=== PATIENT | female | born 1950 | race Caucasian/White ===

== ENCOUNTER 2019-07-03 11:28 | Emergency (ER) | payer OTHER ==
[2019-07-03 11:35] VITALS: BMI 22.4
--- NOTE | 2019-07-03 12:08 | PDOC ---
History of Present Illness - General Chief Complaint: Pain, Acute Stated Complaint: LOW BACK PAIN Time Seen by Provider: 07/03/19 11:52 - History of Present Illness Initial Comments: 07/03/19 13:30 69 years old past medical history significant for high cholesterol diabetes chronic low back pain with radiation down to her left leg presents ED with severely worsening low back pain is worse with movement and now associated with abdominal discomfort. Pain is moderate to severe 9 out of 10 worse with movement no alleviating factors Past History - Past Medical History Allergies/Adverse Reactions: Allergies Allergy/AdvReac Type Severity Reaction Status Date / Time codeine Allergy Verified 07/03/19 11:30 ofloxacin [From Floxin] Allergy Verified 07/03/19 11:30 shrimp Allergy Verified 07/03/19 12:47 tramadol Allergy Verified 07/03/19 11:30 Home Medications: Ambulatory Orders Cyclobenzaprine HCl [Flexeril -] 10 mg PO TID #21 tablet 07/03/19 Glipizide [Glucotrol Xl] 5 mg PO DAILY 07/03/19 Methylprednisolone [Medrol Dose [place]] 4 mg PO ASDIR #21 tablet 07/03/19 Simvastatin [Zocor -] 5 mg PO HS 07/03/19 COPD: No Diabetes: Yes HTN: Yes Hypercholesterolemia: Yes - Psycho Social/Smoking Cessation Hx Smoking History: Never smoked Hx Alcohol Use: No Drug/Substance Use Hx: No Review of Systems - Review of Systems Comments:: 07/03/19 13:31 ROS: A complete review of 10 out of 10 review of systems is taken and is negative apart from what is previously mentioned below and in the HPI. *Physical Exam - Vital Signs Last Vital Signs Temp Pulse Resp BP Pulse Ox 98.3 F 88 17 137/71 99 07/03/19 11:29 07/03/19 11:29 07/03/19 11:29 07/03/19 11:29 07/03/19 11:29 - Physical Exam Comments: 07/03/19 13:43 Vitals: Triage Vital signs reviewed General Appearance: no acute distress, well nourished well developed, Head: Atraumatic, Cardiac: Regular rate and rhythym, no murmurs, no rubs, no gallops, Lungs: Clear to auscultation bilateral, good air movement bilaterally, Abdomen: Soft, non distended, normal bowel sounds, lower abdominal discomfort diffuse Extremities: Full range of motion to all extremities, no cyanosis, clubbing, or edema Musculoskeletal: Moderate to severe paraspinal lower back discomfort Skin: Warm and dry, no rashes or lesions, no rash, no petechiae Neuro: AOX3; Cranial Nerves 2-12 grossly intact, Strength intact to all extremities, Sensation intact to all extremities,gait normal Psych: normal mood, normal affect ED Treatment Course - LABORATORY CBC & Chemistry Diagram: 07/03/19 12:18 07/03/19 12:18 Medical Decision Making - Medical Decision Making 07/03/19 15:40 Moderate anterior wedging and chronic compression fracture with retropulsion but no significant compromise of the spinal canal. Central compression of the L3 vertebral vertebral body findings discussed with patient. We'll provide patient with Medrol Dosepak and neurosurgery follow-up Findings, the need for follow-up and strict return instructions discussed with patient. *DC/Admit/Observation/Transfer Diagnosis at time of Disposition: Vertebral compression fracture Qualifiers: Encounter type: initial encounter Fracture of vertebra location: lumbar Lumbar vertebra fracture level: L3 Qualified Code(s): S32.030A - Wedge compression fracture of third lumbar vertebra, initial encounter for closed fracture - Discharge Dispostion Disposition: HOME Condition at time of disposition: Fair Decision to Admit order: No - Prescriptions Prescriptions: Cyclobenzaprine HCl [Flexeril -] 10 mg PO TID #21 tablet Methylprednisolone [Medrol Dose [place]] 4 mg PO ASDIR #21 tablet - Referrals Referrals: Lakeshia Jung MD [Primary Care Provider] - Eran Buchanan MD, [facility] [Staff Physician] - - Patient Instructions Printed Discharge Instructions: Vertebral Compression Fracture Additional Instructions: Take Medrol Dosepak and Flexeril as prescribed. Follow-up with Dr. Buchanan neurosurgery this week. Return to the emergency department for any weakness numbness or for any concerns. - Post Discharge Activity Discharge - Discharge Information Problems reviewed: Yes Clinical Impression/Diagnosis: Vertebral compression fracture Qualifiers: Encounter type: initial encounter Fracture of vertebra location: lumbar Lumbar vertebra fracture level: L3 Qualified Code(s): S32.030A - Wedge compression fracture of third lumbar vertebra, initial encounter for closed fracture Condition: Fair Disposition: HOME - Admission No - Additional Discharge Information Prescriptions: Cyclobenzaprine HCl [Flexeril -] 10 mg PO TID #21 tablet Methylprednisolone [Medrol Dose [place]] 4 mg PO ASDIR #21 tablet - Follow up/Referral Referrals: Eran Buchanan MD, [facility] [Staff Physician] - Lakeshia Jung MD [Primary Care Provider] - - Patient Discharge Instructions Patient Printed Discharge Instructions: Vertebral Compression Fracture Additional Instructions: Take Medrol Dosepak and Flexeril as prescribed. Follow-up with Dr. Buchanan neurosurgery this week. Return to the emergency department for any weakness numbness or for any concerns. - Post Discharge Activity
[2019-07-03] MEDS ORDERED: SODIUM CHLORIDE 0.9% 1000 ML INFUS.BAG IV ONE (12:17)
[2019-07-03] MEDS ORDERED: diazePAM 2 MG TABLET PO ONE (12:17)
[2019-07-03] MEDS ORDERED: ACETAMINOPHEN 1000 MG/100 ML VIAL (NON FORMULARY) IVPB ONE (12:17)
[2019-07-03] MEDS ORDERED: diazePAM 2 MG TABLET ONE (12:26)
[2019-07-03] MEDS ORDERED: ACETAMINOPHEN INJECTION 100 ML IVPB ONE (12:26)
[2019-07-03 12:54] LABS: BASO % 0.4 % (0-2.0); EOS % 1.3 % (0-4.5); HEMOGLOBIN 11.1 GM/dl (10.7-15.3); LYMPH % 21.3 % (8-40); MCH 30.5 pg (25.7-33.7); MCHC 33.6 g/dl (32.0-36.0); MEAN CELL VOLUME 90.6 fl (80-96); MEAN PLT VOLUME 8.5 fl (7.5-11.1); MONO % 3.7 % (3.8-10.2); NEUT % 73.3 % (42.8-82.8); PLATELET COUNT 323 K/MM3 (134-434); RBC 3.65 M/mm3 (3.60-5.2); RDW 13.6 % (11.6-15.6); WHITE BLOOD COUNT 6.6 K/mm3 (4.0-10.8)
[2019-07-03 13:03] LABS: EPITHELIAL CELLS FEW /hpf; URINE MUCUS 1+
[2019-07-03 13:16] LABS: ALBUMIN 4.8 g/dl (3.4-5.0); BILIRUBIN,TOTAL 0.6 mg/dl (0.2-1); CREATININE 0.8 mg/dl (0.55-1.3); POTASSIUM 4.6 mmol/L (3.5-5.1); TOT PROT 7.3 g/dl (6.4-8.2)
[2019-07-03] MEDS ORDERED: morphine SULFATE 4 MG/ML VIAL ONE (14:11)
[2019-07-03] MEDS ORDERED: HYDROmorphone HCL CARPU-JECT 1 MG/1 ML DISP.SYRIN ONE (14:13)
[2019-07-03] MEDS ORDERED: HYDROmorphone HCL CARPU-JECT 1 MG/1 ML DISP.SYRIN IVPUSH ONE (14:13)
[2019-07-03 15:40] VITALS: BP 136/79; PULSE 80; TEMP 97.7
== END 2019-07-03 15:49 | disposition home or self-care (01) ==
LOC: FER 11:28
PROC: 3E033NZ Introduction of Analgesics, Hypnotics, Sedatives into Peripheral Vein, Percutaneous Approach (ICD-10-PCS; principal; 2019-07-03)
PROC: 3E0337Z Introduction of Electrolytic and Water Balance Substance into Peripheral Vein, Percutaneous Approach (ICD-10-PCS; 2019-07-03)
DX: S32.030A Wedge compression fracture of third lumbar vertebra, initial encounter for closed fracture (principal); G89.29 Other chronic pain; I10 Essential (primary) hypertension; E11.9 Type 2 diabetes mellitus without complications; E78.00 Pure hypercholesterolemia, unspecified; Z88.5 Allergy status to narcotic agent; Z91.013 Allergy to seafood; X58.XXXA Exposure to other specified factors, initial encounter; Y93.89 Activity, other specified; Y92.89 Other specified places as the place of occurrence of the external cause
CPT/HCPCS: 36415; 72132-TC; 74177-TC; 80053; 81003; 81015; 85025; 99283-25; J0131; J7030